=== PATIENT | female | born 1940 | race Caucasian/White ===

== ENCOUNTER 2017-03-02 14:24 | Observation (INO) | payer MEDICARE, BC ==
[2017-03-02 15:26] LABS: #Eosinphils 0.1 thou/uL (0.0-0.7); #Lymphocytes 1.6 thou/uL (1.20-3.40); #Monocytes 0.5 thou/uL (0.11-0.59); %Basophils 0.1 % (0.0-1.0); %Eosinophils 1.6 % (0.0-10.0); %Lymphocytes 22.5 % (21.0-51.0); %Monocytes 6.5 % (0.0-10.0); Hematocrit 36.6 % (36.0-47.0); Mean Platelet Volume 6.7 fL (7.4-10.4); Red Blood Cell (RBC) Count 4.08 mill/uL (4.20-5.40); White Blood Cell (WBC) Count 7.3 thou/uL (4.8-10.8)
[2017-03-02 15:33] LABS: PTT 24.2 SEC (22.9-36.1); Prothrombin Time 12.2 SEC (12.0-14.7)
--- NOTE | 2017-03-02 15:39 | CT ---
HEAD CT WITHOUT CONTRAST: Date: 03-02-17 Comparison: 03-29-11 History: Left sided weakness, most severe in the left lower extremity. Technique: Serial axial CT imaging at 5 mm intervals from vertex through skull base without contrast . FINDINGS: The imaged paranasal sinuses/mastoid air cells are within normal limits. There is no acute osseous a bnormality. There is no intracranial hemorrhage, midline shift, mass effect or ventricular enlargement. There is periventricular hypodensity suggesting a stable degree of small vessel disease. IMPRESSION: No intracranial hemorrhage. POS: [facility]
[2017-03-02 15:47] LABS: ALT (SGPT) 16 U/L (8-55); AST (SGOT) 13 U/L (5-34); Alkaline Phosphatase 95 U/L (40-150); Anion Gap 14 mmol/L (10-20); BUN (Urea Nitrogen) 17 mg/dL (9.8-20.1); Bilirubin, Total 0.4 mg/dL (0.2-1.2); CK (CPK) 45 U/L (29-168); Calc. Creatinine Clearance 0 mL/min (70-130); Calcium 8.5 mg/dL (7.8-10.44); Carbon Dioxide 24 mmol/L (23-31); Chloride 107 mmol/L (98-107); Estimated GFR-MDRD 49; Protein, Total 6.5 g/dL (6.0-8.3)
[2017-03-02 15:50] LABS: Troponin I Less than 0.010 ng/mL (< 0.028)
[2017-03-02] MEDS ORDERED: Aspirin 325 MG TAB ONE (17:11)
[2017-03-02] MEDS ORDERED: Ondansetron HCl/PF 4 MG/2 ML Vial IVP PRN (19:20)
[2017-03-02] MEDS ORDERED: Acetaminophen 325 MG TAB PO PRN ×2 (19:20→19:34)
[2017-03-02] MEDS ORDERED: Ondansetron ODT 4 MG TAB SL PRN (19:20)
[2017-03-02] MEDS ORDERED: HYDROcodone/Acetaminophen 5/325 mg Tablet PO PRN (19:34)
[2017-03-02] MEDS ORDERED: Ondansetron ODT 4 MG TAB PO PRN (19:34)
[2017-03-02] MEDS ORDERED: HYDROcodone/Acetaminophen 10/325 mg Tablet PO PRN (19:34)
[2017-03-02] MEDS ORDERED: Enoxaparin Sodium 40 MG/0.4 ML SYRINGE SC SCH (19:45)
[2017-03-02] MEDS ORDERED: Zolpidem Tartrate 5 MG TAB PO PRN (20:00)
[2017-03-02] MEDS ORDERED: Atorvastatin Calcium 40 MG TAB PO SCH (21:00)
[2017-03-02] MEDS ORDERED: Gabapentin 100 MG CAP PO SCH (21:00)
[2017-03-02] MEDS: Famotidine 20 MG TAB PO SCH (21:40)
[2017-03-02 22:01] VITALS: BMI 29.7
--- NOTE | 2017-03-02 22:14 | ULT ---
CAROTID DUPLEX SONOGRAM: History: TIA. Vascular disease. FINDINGS: Right: Mild plaque is present. Color and spectral doppler evaluation, peak systolic velocity of 65 c m/sec and ICA/CCA ratio of 1.1 suggests no hemodynamically significant stenosis within the extracran ial right ICA. Antegrade flow is present within the vertebral artery. Left: Mild plaque is present. Color and spectral doppler evaluation, peak systolic velocity of 52 cm /sec and ICA/CCA ratio of 0.6 suggests no hemodynamically significant stenosis within the extracrani al left ICA. Antegrade flow is present within the vertebral artery. IMPRESSION: Atherosclerosis. There is no sonographic evidence of significant extracranial ICA stenosis. POS: [facility]
[2017-03-03 05:05] LABS: #Eosinphils 0.1 thou/uL (0.0-0.7); #Lymphocytes 2.3 thou/uL (1.20-3.40); #Monocytes 0.5 thou/uL (0.11-0.59); #Neutrophils 3.4 thou/uL (1.40-6.50); %Eosinophils 1.7 % (0.0-10.0); %Lymphocytes 36.9 % (21.0-51.0); %Monocytes 7.4 % (0.0-10.0); Hematocrit 36.2 % (36.0-47.0); White Blood Cell (WBC) Count 6.2 thou/uL (4.8-10.8)
[2017-03-03 05:31] LABS: Anion Gap 11 mmol/L (10-20); BUN (Urea Nitrogen) 14 mg/dL (9.8-20.1); Calc. Creatinine Clearance 60 mL/min (70-130); Carbon Dioxide 24 mmol/L (23-31); Chloride 107 mmol/L (98-107); Cholesterol 211 mg/dl (< 200 Desired); Estimated GFR-MDRD 60; LDL Cholesterol, Calculated 132 mg/dL
--- NOTE | 2017-03-03 05:38 | HP ---
DATE OF ADMISSION: 03/02/2017 CHIEF COMPLAINT: Left lower extremity more than left upper extremity weakness. PRIMARY CARE PHYSICIAN: Nicolás Stiles D.O. HISTORY OF PRESENT ILLNESS: Ms. Monterroso is a pleasant 76-year-old white female with history of hypothyr oidism, hyperlipidemia, anxiety, and depression who presents to the emergency department for evaluat ion of left leg weakness. She stated it started last evening. She has felt like she could not move her left leg very well. S he had some tingling and cramps to her left leg and was really unable to raise it up off the bed wit hout having severe tremulousness. Left upper extremity felt weak as well, but not as badly, but she watched it overnight. Today was mot much improved and was actually felt weaker in her legs. She presented to the emergenc y department for evaluation. Workup in the emergency department included a brain CT which was negative, labs which were normal an d vital signs were unremarkable. She states her strength is currently better than it has been, but she has not tried to stand. No fevers or chills, no chest pain or shortness of breath, no nausea or vomiting, no dizziness. No cough or sputum production. PAST MEDICAL HISTORY: 1. Hypothyroidism. 2. Hyperlipidemia. 3. Anxiety. 4. Depression. 5. Remote history of infectious hepatitis of unknown type. 6. Neuropathy, ankle pain. PAST SURGICAL HISTORY: Includes, 1. Bilateral bunionectomy in 1977. 2. Appendectomy and cholecystectomy at the same time in the mid to late s. 3. Hysterectomy with bilateral salpingo-oophorectomy about 46 years ago. HOME MEDICATIONS: 1. Vitamin B12 1000 mcg daily. 2. [place] Thyroid 60 mg p.o. q.a.m. 3. Lipitor 20 mg p.o. at bedtime. 4. Ambien 10 mg p.o. at bedtime. 5. Gabapentin 100 mg p.o. daily. 6. Meclizine 25 mg p.o. as needed for vertigo, which he has not used it for a month. 7. Albuterol MDI 2 puffs as needed, but has not used that in a month. 8. Aspirin 81 mg daily about 3 times a week. ALLERGIES: None. ASPIRIN does cause stomach irritation. FAMILY HISTORY: She has got colon cancer in her mom, laryngeal cancer in her dad after a strong smo han history and her dad had a heart attack multiple times, but started when he was in his late 70s. SOCIAL HISTORY: Negative for habits x3. She lives at home alone. She has her daughter with her. REVIEW OF SYSTEMS: A 10-point review of systems was performed, negative for all other systems excep t stated as per HPI. PHYSICAL EXAMINATION: VITAL SIGNS: Temperature 97.8, pulse 64, blood pressure 131/96, respiratory rate 18, satting 98% on room air. GENERAL: She is awake. She is alert. She is oriented x3. She is a well-developed, well-nourished , obese white female, appears to be in no acute distress. HEENT: Normocephalic, atraumatic. Pupils equal, round, reactive to light bilaterally. Mucous memb ranes moist and no visible lesions. No thrush. NECK: Supple, without lymphadenopathy, JVD or thyromegaly. LUNGS: Clear. She has no wheezing, no rales or rhonchi. No prolonged expiratory phase. ABDOMEN: Soft, is obese, is nontender, nondistended. She has no hepatosplenomegaly. She has no re bound, rigidity or guarding. There were normoactive bowel sounds present in all 4 quadrants. EXTREMITIES: No cyanosis, no clubbing, no edema. SKIN: Warm, moist, and well perfused without any rashes or lesions. MUSCULOSKELETAL: Normal to inspection. She has no inflamed joints. No palpable joint effusions. NEUROLOGIC: Cranial nerves II-XII are grossly intact without any focal neurologic deficits. SKIN: She has normal speech pattern, she has 5/5 strength in her bilateral lower extremities and jose th flexors and extensors of the upper and lower part of her legs. Her strength in her upper extremi ties are equal and symmetrical and 5/5 in both. LABORATORY EVALUATION: Comprehensive metabolic profile is completely within normal limits. CBCs were within normal limits. Hemoglobin 12.2, hematocrit 36.6, and white count is 7.3. Her crea tinine was 1.09 and potassium 4.1. She does have a CK-MB which was normal at 1.3, troponin I was un detectable. INR is 0.9. RADIOGRAPHIC STUDIES: She had a brain CT that showed no acute intracranial abnormalities. ASSESSMENT AND PLAN: 1. Transient ischemic attack: Left lower extremity more than left upper extremity weakness. No sp eech problems, no change in her vision, hearing, taste or smell and at present, she does not feel li ke there is any residual effects. We will place on telemetry, observe on the stroke unit. We will get a fasting lipid profile in the morning. Continue aspirin, we will get MRI and MRA of the brain, and a carotid Doppler ultrasound. We will ask Neurology to visit for their opinion. We will jackie nue aspirin 325 mg daily for now. 2. Hypothyroidism on [place] thyroid, we will continue. 3. Hyperlipidemia on Lipitor 20, we will increase to 40 for now. 4. Anxiety/depression. 5. History of infectious hepatitis long ago. We will continue her Ambien at her request, we will continue gabapentin for her ankle pain at night.
[2017-03-03 08:09] VITALS: TEMP 97.5
[2017-03-03] MEDS ORDERED: Aspirin 325 mg Enteric Coated Tablet PO SCH (09:00)
[2017-03-03] MEDS ORDERED: FLU VACC TS2017-18 (>65YR) 0.5 ML SYRINGE IM ONE (09:00)
[2017-03-03] MEDS: Famotidine 20 MG TAB PO SCH (09:55)
--- NOTE | 2017-03-03 11:16 | MRI ---
MRI BRAIN WITHOUT CONTRAST: History: TIA with left upper and lower extremity weakness. FINDINGS: Correlation is made with noncontrasted CT scan of the brain from the previous day. No restricted diffusion is seen. There are multiple foci of T2 prolongation of the periventricular w lizbeth matter consistent with chronic small vessel ischemic disease. No evidence of infarction, hemorr trisha, midline shift, or abnormal extraaxial fluid collections are seen. The ventricular size is appr opriate and basilar cisterns are patent. The visualized paranasal sinuses and mastoid air cells are well aerated. IMPRESSION: No evidence of acute intracranial process. POS: [facility]
--- NOTE | 2017-03-03 11:44 | MRI ---
MR ANGIOGRAM OF THE BRAIN: Date: 03-03-17 Comparison: None. History: Transient ischemic attack, left upper extremity and left lower extremity weakness. Technique: Routine noncontrast enhanced 3D [id number] MR angiography of the brain is obtained. FINDINGS: The distal vertebral artery on the right is hypoplastic. Bilateral vertebral arteries are patent, th e left vertebral artery being dominant. There is no sacular aneurysm or vascular occlusion involving the posterior circulation. Basilar hollie ry and its branches are patent. Bilateral posterior cerebral arteries appear unremarkable. The images extracranial internal carotid artery is patent bilaterally. Bilateral A1 segments are patent. The distal JAQUELIN branches are unremarkable, as is the region of the anterior communicating artery. The internal carotid artery bifurcation, the M1 segment, and the MCA bifurcation appears normal bila terally. Distal MCA branches are grossly unremarkable. There is no sacular aneurysm high grade stenosis or vascular occlusion involving the anterior circul ation. IMPRESSION: 1. No sacular aneurysm, high grade stenosis, or vascular occlusion. POS: [facility]
--- NOTE | 2017-03-03 13:39 | DIS ---
DATE OF ADMISSION: 03/02/2017 DATE OF DISCHARGE: 03/03/2017 DISCHARGE DIAGNOSES: 1. Left lower extremity paresthesias, etiology unclear. 2. Question of transient ischemic attack with negative workup. 3. Hypothyroidism, stable. 4. Hyperlipidemia. 5. Elevated blood pressure. 6. Anxiety/depression. 7. Peripheral neuropathy. CONSULTATIONS: None. PERTINENT LABORATORY AND X-RAY FINDINGS: Complete metabolic profile within normal limits. Troponin I negative x1. Total cholesterol 211, triglycerides 215, HDL 36, LDL 132. CBC within normal limit s. PT 12.2, INR 0.9, PTT 24.2. CT of the brain without contrast dated 03/02/2017 showed no acute i ntracranial process. Carotid Doppler study dated 03/02/2017 showed atherosclerosis without focal st enosis. MRA of the brain dated 03/03/2017 showed no focal stenosis or aneurysm. MRI of the brain d ated 03/03/2017 showed no acute intracranial process. Chronic ischemic white matter changes noted. HOSPITAL COURSE: The patient was observed on the stroke unit after initially presenting with left l ower extremity weakness and concern for TIA. The patient underwent general TIA rule out including m ultiple neuro imaging studies showing no evidence of acute stroke. Screening metabolic survey was u nremarkable except for hyperlipidemia. The patient was noted with mildly elevated blood pressure wi th recommendations for ongoing outpatient monitoring and serial assessments. Overall, the patient r emained clinically stable throughout the hospital course, tolerating regular oral intake with teleme try monitoring showing a sinus mechanism without evidence of acute arrhythmia or dysrhythmia. The p atient overall clinically stable and ready for discharge on 03/03/2017. DISCHARGE MEDICATIONS: 1. Enteric coated aspirin 81 mg 1 tablet p.o. daily. 2. Lipitor 20 mg one tablet p.o. at bedtime. 3. Vitamin D3 at 1000 units p.o. daily. 4. Vitamin B12 at 2500 mcg p.o. daily. 5. Gabapentin 100 mg p.o. at bedtime. 6. Meclizine 25 mg p.o. at bedtime p.r.n. 7. [place] Thyroid 60 mg p.o. daily. 8. Ventolin HFA 1 puff inhaled q.4-6 p.r.n. 9. Ambien 10 mg p.o. at bedtime p.r.n. FOLLOWUP: The patient will followup with her primary care provider Dr. Nicolás Stiles within 7 days of discharge. CONDITION ON DISCHARGE: Stable. ACTIVITY: Ad flor. DIET: Heart healthy. CODE STATUS: FULL. DISPOSITION: Home 03/03/2017.
[2017-03-04 07:26] VITALS: BP 105/56
--- NOTE | 2017-04-10 16:03 | EKG ---
Test Reason : Blood Pressure : / mmHG Vent. Rate : 083 BPM Atrial Rate : 083 BPM P-R Int : 128 ms QRS Dur : 054 ms QT Int : 366 ms P-R-T Axes : 059 015 083 degrees QTc Int : 430 ms Normal sinus rhythm Normal ECG Confirmed by PRABHU ZAFAR MD ([id number]), news copy editor ANNIE ROBBINS ([id number]) on 04/10/2017 4:02:58 PM Referred By: Confirmed By:PRABHU ZAFAR MD
== END 2017-03-03 13:51 | disposition home or self-care (01) ==
LOC: ERS 14:24 → 2SE 17:00
PROVIDERS: ADMIT Internal Medicine Infectious Disease; ATTEND Internal Medicine Infectious Disease
DX: R20.2 Paresthesia of skin (principal); E03.9 Hypothyroidism, unspecified; E78.5 Hyperlipidemia, unspecified; R03.0 Elevated blood-pressure reading, without diagnosis of hypertension; G62.9 Polyneuropathy, unspecified; F32.9 Major depressive disorder, single episode, unspecified; F41.9 Anxiety disorder, unspecified; Z88.8 Allergy status to other drugs, medicaments and biological substances; Z79.899 Other long term (current) drug therapy; Z90.49 Acquired absence of other specified parts of digestive tract; Z90.710 Acquired absence of both cervix and uterus; Z90.722 Acquired absence of ovaries, bilateral; Z98.890 Other specified postprocedural states; Z86.19 Personal history of other infectious and parasitic diseases; I65.23 Occlusion and stenosis of bilateral carotid arteries
CPT/HCPCS: 70450; 70544; 70551; 80048; 80053; 80061; 82550; 82553; 84484; 85025 ×2; 85610; 85730; 93005; 93880; 96372; 97139 ×3; 99285; G0378; G8978; G8979; G8987; G8988; G8989; 36415; 90471; 90682; A4216; G0008; G9162-GN-CH; G9163-GN-CH; J1650; Q2036